=== PATIENT | male | born 1950 | race Caucasian/White ===

== ENCOUNTER → 2016-10-21 | Outpatient (CLI) | payer BC ==
--- NOTE | 2016-10-21 15:33 | US ---
EXAMINATION TYPE: US kidneys/renal and bladder DATE OF EXAM: 10/21/2016 2:56 PM COMPARISON: NONE CLINICAL HISTORY: N18.3 chronic kidney disease. Chronic kidney disease, pt states no known renal issu es EXAM MEASUREMENTS: Right Kidney: 18.6 x 9.4 x 8.2 cm Left Kidney: 21.7 x 9.3 x 8.1 cm Right Kidney: Innumerable cystic lesions scattered throughout right renal fossa/ Normal renal tissue not identified Left Kidney: Innumerable cystic lesions scattered throughout left renal fossa/ Normal renal tissue no t identified Bladder: wnl Bilateral Jets seen: Yes Incidental multicystic liver There is no evidence for hydronephrosis at this point in time. No nephrolithiasis is seen. No trever s are identified. The urinary bladder is anechoic. Bilateral ureteral jets are seen. IMPRESSION: 1. Polycystic kidney disease. Note that multiple cysts are also present within the liver.
== END | disposition home or self-care (01) ==
LOC: RADUSWWP 14:39
PROVIDERS: ATTEND Family Medicine
DX: Q61.3 Polycystic kidney, unspecified (principal); N18.3 Chronic kidney disease, stage 3 (moderate)
CPT/HCPCS: 76770

== ENCOUNTER → 2019-12-23 | Outpatient (CLI) | payer MEDICARE, BC ==
--- NOTE | 2019-12-23 08:51 | US ---
EXAMINATION TYPE: US liver DATE OF EXAM: 12/23/2019 COMPARISON: NONE CLINICAL HISTORY: R94.5 abnormal liver function. Abnormal liver function EXAM MEASUREMENTS: Liver Length: 17.9 cm Gallbladder Wall: 0.1 cm CBD: 0.4 cm Right Kidney: 18.7 x 12.4 x 16.3 cm Pancreas: obscured by overlying midline bowel gas Liver: measures in upper limits of normal, multicystic with largest measuring 7.2 x 5.8 x 6.3cm. Thi s contains internal debris. Gallbladder: wnl Evidence for sonographic Castaneda's sign: no CBD: visualized portions wnl, limited by overlying bowel gas Right Kidney: enlarged, multicystic IMPRESSION: Polycystic kidney and polycystic liver disease. One of the largest liver lesions is compl ex measuring 7.2 cm and containing internal debris. CT abdomen with contrast is recommended for furth er evaluation. Additionally if MRA brain has never been performed it would be recommended to exclude associated aneurysm.
== END | disposition home or self-care (01) ==
LOC: RADUSWWP 08:05
PROVIDERS: ATTEND Family Medicine
DX: Q44.6 Cystic disease of liver (principal); K76.9 Liver disease, unspecified
CPT/HCPCS: 76705

== ENCOUNTER → 2020-04-04 | Outpatient (CLI) | payer MEDICARE, BC ==
--- NOTE | 2020-04-04 22:32 | MR ---
"EXAMINATION TYPE: MR angio head wo con DATE OF EXAM: 04/04/2020 COMPARISON: CT brain July 26, 2012. HISTORY: no prior, multiple cysts, polycystic kidney disease, evaluate for aneurysm TECHNIQUE: Time of flight images focusing on the [place] were performed without contrast.. 2-D and 3-D postprocessing imaging is performed on a independent workstation. FINDINGS: Codominant vertebrobasilar system. Vertebral arteries patent to basilar junction. No signif icant focal stenosis or aneurysmal change in the posterior circulation. Hypoplastic bilateral posteri or communicating arteries. Images of the anterior circulation show relatively 10 mm focal aneurysm just before the left MCA trif urcation on image 86. In retrospect this was present on 2013 CT axial image 11. Hypoplastic anterior communicating artery is present. No significant focal stenosis is present. 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 A Yellow level critical message alert has been initiated for Isaiah Sung MD via the [employer] | Critical Results System on 04/04/2020 10:29 PM. This message alert has been sent to Isaiah dwyer MD via the preferences provided by the clinician for the receipt of Radiology Critical Findings. Message ID [id number]."
== END | disposition home or self-care (01) ==
LOC: RADMRIMAIN 19:47
PROVIDERS: ATTEND Family Medicine
DX: I67.1 Cerebral aneurysm, nonruptured (principal)
CPT/HCPCS: 70544

== ENCOUNTER 2020-08-29 09:28 | Emergency (ER) | payer MEDICARE, BC ==
[2020-08-29 09:38] VITALS: TEMP 98.2
--- NOTE | 2020-08-29 09:53 | ED ---
General Adult HPI - General Chief complaint: Syncope Stated complaint: syncope Source: patient Mode of arrival: ambulatory Limitations: no limitations - History of Present Illness Initial comments: Patient is a 70-year-old male with past nuchal history of polycystic kidney disease, aneurysm repair in May who presents to the emergency department with reported syncopal episode. The patient was shopping with his at [facility]. He reported that he felt hot and then passed out. Patient slowly slid down to his knees. He was pushing the cart. White was able to lower down to the ground without him hitting his head. She reports the patient was only out for a few seconds. EMS was called. They did attempt to pick the patient up when he went pale and passed out again. It was recommended that the patient come into the emergency room for evaluation. Patient states that he is not drinking much water and think she is dehydrated. Denies any nausea or vomiting. No chest pain or shortness of breath prior to the episode. Patient did have a recent aneurysm repair last year. Patient was incidentally found have an aneurysm because of his history of cystic kidney disease. Denies ever having any symptoms. Today he has no headaches or visual changes. Denies abdominal pain. No black tarry or sticky stools. No other alleviating, precipitating or modifying factors - Related Data Home Medications Medication Instructions Recorded Confirmed Cholecalciferol [Vitamin D3 (25 50 mcg PO AC-SUPPER 08/29/20 08/29/20 Mcg = 1000 Iu)] Febuxostat [Uloric] 40 mg PO AC-SUPPER 08/29/20 08/29/20 Ferrous Sulfate [Feosol] 325 mg PO AC-SUPPER 08/29/20 08/29/20 Simvastatin 10 mg PO AC-SUPPER 08/29/20 08/29/20 amLODIPine [Norvasc] 5 mg PO AC-SUPPER 08/29/20 08/29/20 calcitrioL [Rocaltrol] 0.25 mcg PO TUTH@1730 08/29/20 08/29/20 Allergies Allergy/AdvReac Type Severity Reaction Status Date / Time No Known Allergies Allergy Verified 08/29/20 14:29 Review of Systems ROS Statement: Those systems with pertinent positive or pertinent negative responses have been documented in the HPI. ROS Other: All systems not noted in ROS Statement are negative. Past Medical History Past Medical History: Hypertension Additional Past Medical History / Comment(s): brain anerysm repaired at [facility] History of Any Multi-Drug Resistant Organisms: None Reported Past Surgical History: Hernia Repair Additional Past Surgical History / Comment(s): anerysm repaired Past Psychological History: No Psychological Hx Reported Smoking Status: Never smoker Past Alcohol Use History: None Reported Past Drug Use History: None Reported General Exam Limitations: no limitations Course Vital Signs 08/29/20 08/29/20 08/29/20 09:30 10:00 10:30 Temperature 98.2 F Pulse Rate 73 67 71 Pulse Rate [ Sitting] Pulse Rate [ Standing] Pulse Rate [ Supine] Respiratory 18 16 16 Rate Blood Pressure 150/90 150/90 150/90 Blood Pressure [Sitting] Blood Pressure [Standing] Blood Pressure [Supine] O2 Sat by Pulse 99 99 98 Oximetry 08/29/20 08/29/20 10:57 11:00 Temperature Pulse Rate 71 Pulse Rate [ 73 Sitting] Pulse Rate [ 78 Standing] Pulse Rate [ 71 Supine] Respiratory 16 Rate Blood Pressure 117/73 Blood Pressure 140/81 [Sitting] Blood Pressure 117/73 [Standing] Blood Pressure 131/79 [Supine] O2 Sat by Pulse 98 Oximetry - Reevaluation(s) Reevaluation #1: 08/29/20 12:[address] reed EKG Findings - EKG Comments: EKG Findings:: EKG demonstrates normal sinus rhythm with a ventricular rate of 72. AL interval 186. QRS 76. QTC of 420. No acute ST segment elevations or d epressions Medical Decision Making - Medical Decision Making Upon arrival patient was placed into room 7. A thorough history and physical exam was performed. This did occur obtained and are positive. The patient was given a liter bolus of normal saline. Laboratory studies were conducted. Creatinine found to be 4.8. I did speak with the patient and he reports his baseline is a GFR of 12. I called and discussed the patient's care with Dr. Reed. She does agree that the patient's GFR is at his baseline. I also called and discussed the patient's care with Dr. Molina. Patient is adamant that he wants to go home at this time. Dr. [facility]. Reports that they will see the patient in office and ensure further follow-up for a syncopal episode. The patient understood this and agreed to treatment plan. If he has any new or worsening symptoms he should return to the emergency room. was at bedside and agrees to treatment plan the patient was discharged home in stable condition - Lab Data Result diagrams: 08/29/20 10:38 08/29/20 10:38 Lab Results 08/29/20 08/29/20 08/29/20 Range/Units 10:38 10:38 10:38 WBC 7.8 (3.8-10.6) k/uL RBC 3.75 L (4.30-5.90) m/uL Hgb 10.7 L (13.0-17.5) gm/dL Hct 33.0 L (39.0-53.0) % MCV 87.8 (80.0-100.0) fL MCH 28.5 (25.0-35.0) pg MCHC 32.4 (31.0-37.0) g/dL RDW 13.7 (11.5-15.5) % Plt Count 308 (150-450) k/uL MPV 6.8 Neutrophils % 81 % Lymphocytes % 8 % Monocytes % 7 % Eosinophils % 2 % Basophils % 1 % Neutrophils # 6.3 (1.3-7.7) k/uL Lymphocytes # 0.6 L (1.0-4.8) k/uL Monocytes # 0.5 (0-1.0) k/uL Eosinophils # 0.1 (0-0.7) k/uL Basophils # 0.0 (0-0.2) k/uL PT 10.5 (9.0-12.0) sec INR 1.0 (<1.2) APTT 22.2 (22.0-30.0) sec Sodium 137 (137-145) mmol/L Potassium 5.0 (3.5-5.1) mmol/L Chloride 104 (98-107) mmol/L Carbon Dioxide 25 (22-30) mmol/L Anion Gap 8 mmol/L BUN 65 H (9-20) mg/dL Creatinine 4.80 H (0.66-1.25) mg/dL Est GFR (CKD-EPI)AfAm 13 (>60 ml/min/1.73 sqM) Est GFR (CKD-EPI)NonAf 11 (>60 ml/min/1.73 sqM) Glucose 119 H (74-99) mg/dL Calcium 9.5 (8.4-10.2) mg/dL Total Bilirubin 0.5 (0.2-1.3) mg/dL AST 25 (17-59) U/L ALT 16 (4-49) U/L Alkaline Phosphatase 134 H (38-126) U/L Troponin I (0.000-0.034) ng/mL Total Protein 6.6 (6.3-8.2) g/dL Albumin 3.6 (3.5-5.0) g/dL 08/29/20 Range/Units 10:38 WBC (3.8-10.6) k/uL RBC (4.30-5.90) m/uL Hgb (13.0-17.5) gm/dL Hct (39.0-53.0) % MCV (80.0-100.0) fL MCH (25.0-35.0) pg MCHC (31.0-37.0) g/dL RDW (11.5-15.5) % Plt Count (150-450) k/uL MPV Neutrophils % % Lymphocytes % % Monocytes % % Eosinophils % % Basophils % % Neutrophils # (1.3-7.7) k/uL Lymphocytes # (1.0-4.8) k/uL Monocytes # (0-1.0) k/uL Eosinophils # (0-0.7) k/uL Basophils # (0-0.2) k/uL PT (9.0-12.0) sec INR (<1.2) APTT (22.0-30.0) sec Sodium (137-145) mmol/L Potassium (3.5-5.1) mmol/L Chloride (98-107) mmol/L Carbon Dioxide (22-30) mmol/L Anion Gap mmol/L BUN (9-20) mg/dL Creatinine (0.66-1.25) mg/dL Est GFR (CKD-EPI)AfAm (>60 ml/min/1.73 sqM) Est GFR (CKD-EPI)NonAf (>60 ml/min/1.73 sqM) Glucose (74-99) mg/dL Calcium (8.4-10.2) mg/dL Total Bilirubin (0.2-1.3) mg/dL AST (17-59) U/L ALT (4-49) U/L Alkaline Phosphatase (38-126) U/L Troponin I <0.012 (0.000-0.034) ng/mL Total Protein (6.3-8.2) g/dL Albumin (3.5-5.0) g/dL Disposition Clinical Impression: Syncope and collapse, Polycystic kidney disease, CKD (chronic kidney disease) Disposition: HOME SELF-CARE Condition: Stable Instructions (If sedation given, give patient instructions): Syncope (ED) Additional Instructions: Please call the primary care office tomorrow to make an appointment. return to the emergency room for any new or worsening symptoms Is patient prescribed a controlled substance at d/c from ED?: No Referrals: Isaiah Sung MD [Primary Care Provider] - 1-2 days Time of Disposition: 12:57
[2020-08-29] MEDS ORDERED: SODIUM CHLORIDE 0.9% 1,000 ML IV STA (10:16)
[2020-08-29 10:53] LABS: Basophils % (A) 1 %; Eosinophils # (A) 0.1 k/uL (0-0.7); Eosinophils % (A) 2 %; HGB 10.7 gm/dL (13.0-17.5); Lymphocytes # (A) 0.6 k/uL (1.0-4.8); Lymphocytes % (A) 8 %; MCH 28.5 pg (25.0-35.0); MCHC 32.4 g/dL (31.0-37.0); MCV 87.8 fL (80.0-100.0); Mean Platelet Volume 6.8; Monocytes # (A) 0.5 k/uL (0-1.0); Monocytes % (A) 7 %; Neutrophils # (A) 6.3 k/uL (1.3-7.7); Neutrophils % (A) 81 %; Platelet Count 308 k/uL (150-450); RBC 3.75 m/uL (4.30-5.90); RDW 13.7 % (11.5-15.5); WBC 7.8 k/uL (3.8-10.6)
[2020-08-29 11:00] VITALS: PULSE 71
[2020-08-29 11:05] VITALS: BP 117/73; RESP 16
[2020-08-29 11:06] LABS: Partial Thromboplastin Time 22.2 sec (22.0-30.0); Prothrombin Time 10.5 sec (9.0-12.0)
[2020-08-29 11:10] LABS: Albumin 3.6 g/dL (3.5-5.0); Calcium 9.5 mg/dL (8.4-10.2); Total Bilirubin 0.5 mg/dL (0.2-1.3); Total Protein 6.6 g/dL (6.3-8.2)
== END 2020-08-29 13:04 | disposition home or self-care (01) ==
LOC: MERGE 09:28 → EC 09:28
DX: R55 Syncope and collapse (principal); Q61.3 Polycystic kidney, unspecified; I12.9 Hypertensive chronic kidney disease with stage 1 through stage 4 chronic kidney disease, or unspecified chronic kidney disease; N18.9 Chronic kidney disease, unspecified; Z79.899 Other long term (current) drug therapy
CPT/HCPCS: 36415; 80053; 84484; 85025; 85610; 85730; 96360; 99284

== ENCOUNTER 2021-04-01 08:26 | Day surgery (SDC) | payer MEDICARE, BC ==
[2021-03-27 13:14] VITALS: BMI 26.6
[~2021-04-01 08:26] MED LIST: ACETAMINOPHEN TAB 500 MG TAB PO PRN; DEXAMETHASONE SOD PHOSPHATE 4 MG/ML 1 ML VIAL IV ONE; HEPARIN SODIUM,PORCINE/PF 5,000 UNIT/0.5 ML SYRINGE SQ PRN; HYDROmorphone 0.5 MG/0.5 ML SYRINGE IVP PRN; LACTATED RINGERS 1,000 ML IV SCH; ONDANSETRON 4 MG/2 ML VIAL IVP ONE
[2021-04-01] MEDS ORDERED: SODIUM CHLORIDE 0.9% 1,000 ML IV ONE (09:57)
[2021-04-01] MEDS ORDERED: MIDAZOLAM 2 MG/2 ML VIAL IV ONE (10:10)
--- NOTE | 2021-04-01 10:49 | P.GSHP ---
History of Present Illness H&P Date: 04/01/21 Chief Complaint: umb hernia, renal failure 71-year-old male last seen in the office 2 years ago. Patient with renal failure from polycystic kidney disease. Here today for peritoneal dialysis catheter insertion. Patient also with a known incarcerated umbilical hernia. No real pain there. Plan is for repair of the hernia with catheter placement today. He has not had a catheter placed previously. Past Medical History Past Medical History: Hypertension, Renal Disease Additional Past Medical History / Comment(s): brain anerysm repaired at [facility] History of Any Multi-Drug Resistant Organisms: None Reported Past Surgical History: Hernia Repair Additional Past Surgical History / Comment(s): anerysm repaired Past Anesthesia/Blood Transfusion Reactions: No Reported Reaction Smoking Status: Never smoker - Past Family History Mother Family Medical History: No Reported History Medications and Allergies Home Medications Medication Instructions Recorded Confirmed Type Cholecalciferol [Vitamin D3 (25 50 mcg PO AC-SUPPER 08/29/20 03/27/21 History Mcg = 1000 Iu)] Febuxostat [Uloric] 40 mg PO AC-SUPPER 08/29/20 03/27/21 History Ferrous Sulfate [Feosol] 325 mg PO AC-SUPPER 08/29/20 03/27/21 History Simvastatin 10 mg PO AC-SUPPER 08/29/20 03/27/21 History amLODIPine [Norvasc] 5 mg PO AC-SUPPER 08/29/20 03/27/21 History calcitrioL [Rocaltrol] 0.25 mcg PO TUTH@1730 08/29/20 03/27/21 History Vitamin B Complex 1 each PO AC-SUPPER 03/27/21 03/27/21 History Allergies Allergy/AdvReac Type Severity Reaction Status Date / Time No Known Allergies Allergy Verified 04/01/21 09:10 Surgical - Exam Vital Signs Temp Pulse Resp BP Pulse Ox 97.4 F L 93 16 139/75 100 04/01/21 09:08 04/01/21 09:08 04/01/21 09:08 04/01/21 09:08 04/01/21 09:08 Physical exam: General: Well-developed, well-nourished HEENT: Normocephalic, sclerae nonicteric Abdomen: Nontender, nondistended, small incarcerated umbilical hernia Extremities: No edema Neuro: Alert and oriented Assessment and Plan (1) Renal failure Narrative/Plan: Will proceed with repair incarcerated umbilical hernia with mesh and peritoneal dialysis catheter insertion placement at this time. Risks of bleeding, infection, recurrence, bladder and bowel injury, numbness, nerve injury, poor function of catheter were discussed with the patient. The patient understands and wishes to proceed. Current Visit: Yes Status: Acute Code(s): N19 - UNSPECIFIED KIDNEY FAILURE SNOMED Code(s): 60740644
[2021-04-01] MEDS ORDERED: PROPOFOL 10 MG/ML 20 ML VIAL IV ONE (11:05)
[2021-04-01] MEDS ORDERED: ePHEDrine SULFATE/0.9% NACL/PF 50 MG/5 ML SYRINGE IV ONE (11:05)
[2021-04-01] MEDS ORDERED: ROPIVACAINE 5 MG/ML 30 ML VIAL ONE (11:05)
[2021-04-01] MEDS ORDERED: LIDOCAINE 1% INJ 10MG/ML (20 ML MDV) ONE (11:05)
[2021-04-01] MEDS ORDERED: fentaNYL (PF) 50 MCG/ML 2 ML AMP ONE (11:05)
[2021-04-01] MEDS ORDERED: SUCCINYLCHOLINE CHLORIDE 100 MG/5 ML SYR IV ONE (11:05)
[2021-04-01] MEDS ORDERED: PHENYLEPHRINE-0.9% NACL SYG 1,000 MCG/10 ML SYRINGE ONE (11:05)
[2021-04-01] MEDS ORDERED: WATER FOR INJECTION, STERILE 10 ML VIAL IV ONE (11:05)
[2021-04-01] MEDS ORDERED: MINERAL OIL 1 APPLIC/ML OIL TOPICAL ONE (11:44)
--- NOTE | 2021-04-01 12:35 | P.ANPRN ---
Procedure Note - Anesthesia - Nerve Block Performed Bilateral Rectus Abdominis Single Time Out Performed: Yes Date of Procedure: 04/01/21 Procedure Start Time: : Procedure Stop Time: :16 Location of Patient: PreOp Indication: Acute Post-Operative Pain, Requested by Surgeon Sedation Type: Sedate with meaningful contact maintained Preparation: Sterile Prep Position: Supine Needle Types: Pajunk Needle Gauge: 21 Ultrasound used to visualize needle placement: Yes Ultrasound used to observe medication spread: Yes Blood Aspirated: No Pain Paresthesia on Injection Noted: No Resistance on Injection: Normal Image Stored and Saved: Yes Events: Uneventful and Well Tolerated (ropi .5% 20cc given bilaterally)
--- NOTE | 2021-04-01 12:40 | P.OP ---
Date of Procedure: 04/01/21 Procedure(s) Performed: PREOPERATIVE DIAGNOSIS: Renal failure, incarcerated umbilical hernia POSTOPERATIVE DIAGNOSIS: Same PROCEDURE: Peritoneal dialysis catheter insertion, repair incarcerated umbilical hernia with mesh SURGEON: Vicky EBL: Minimal ANESTHESIA: General COMPLICATIONS: None OPERATIVE PROCEDURE: The patient was placed in the operative table in the supine position. The abdomen was prepped and draped in usual sterile fashion. A small vertical incision was made in the right periumbilical location. Dissection down through the subcutaneous tissues took place using electrocautery. The anterior rectus was divided vertically using the scalpel. The rectus was bluntly. The posterior rectus was visualized. An 0 Vicryl pursestring was placed. A small opening in the posterior rectus fascia and peritoneum took place using a Metzenbaum scissors. There were no adhesions to the suture that was placed. The pigtail catheter was advanced into the pelvis over a stylette. No resistance was met. The inner cuff was secured to the fascia using the 0 Vicryl pursestring that was placed. The catheter was tunneled to an exit site in the right lateral lower quadrant. The catheter was connected to the 1 L bag of saline and approximated 800 mL of saline was easily introduced into the peritoneal cavity. The fluid was then allowed to evacuate. The majority of the fluid was returned. The anterior rectus fascia was then reapproximated using a running 0 Vicryl stitch. The subcutaneous tissues reprepped using 3-0 Vicryl sutures and the skin using 4-0 Monocryl sutures. The outpatient dialysis adapter was applied to the end of the catheter. Skin glue was then applied. The umbilical hernia was then addressed. A curvilinear left sided periumbilical incision was made using the scalpel. The subcutaneous tissues were dissected bluntly and with cautery. The hernia sac was identified. The umbilical attachments to the fascia were divided using electrocautery. The hernia sac was excised. The defect in the fascia measured 1.5 x 1.5 cm. The fat surrounding the fascial defect was dissected. No additional defects were seen. The preperitoneal space was then dissected using blunt dissection and electrocautery. The 4.3 cm ventral ex mesh was placed beneath the fascia and sutured in place using trans-fascial 0 Ethibond sutures. This was a sub-lay placement. The defect was closed using interrupted [id number] 0 Ethibond mattress sutures. The subcutaneous tissues were reapproximated using inverted 2-0 & 3-0 Vicryl sutures. The umbilicus was tacked back down to the fascia using a 2-0 Vicryl suture. The skin was closed using 4-0 Monocryl sutures. Skin glue and sterile dressings were then applied. DISPOSITION: Stable to recovery room
[2021-04-01 12:41] VITALS: TEMP 97.7
[2021-04-01 12:51] VITALS: RESP 16
[2021-04-01 13:23] VITALS: PULSE 79
[2021-04-01 13:36] VITALS: BP 150/81
[2021-04-01] MEDS ORDERED: ACETAMINOPHEN TAB 325 MG TAB PO SCH (18:00)
[2021-04-01 18:06] LABS: Hepatitis A Antibody IgM Non-Reactive (Non-Reactive); Hepatitis B Core IgM Non-Reactive (Non-Reactive); Hepatitis B Surface AB- Quant <3.5 mIU/mL; Hepatitis B Surface Antibody Non-Reactive (Non-Reactive); Hepatitis B Surface Antigen Non-Reactive (Non-Reactive); Hepatitis C IgG Antibody Non-Reactive (Non-Reactive)
== END 2021-04-01 13:56 | disposition home or self-care (01) ==
LOC: OR 08:26
PROVIDERS: ATTEND Surgery
DX: K42.0 Umbilical hernia with obstruction, without gangrene (principal); Q61.3 Polycystic kidney, unspecified; I10 Essential (primary) hypertension; E78.5 Hyperlipidemia, unspecified; N28.9 Disorder of kidney and ureter, unspecified; Z79.899 Other long term (current) drug therapy
CPT/HCPCS: 49587; 64488; 80074; 86706; 88302; C1781; J2250; J1100; J0690; J2405; J2001; J3010; J2795; J2370; J0330; J2704; J1644